=== PATIENT | female | born 1995 | race Two or more races ===

== ENCOUNTER 2023-04-24 20:58 | Emergency (ER) | payer MEDICARE, OTHER ==
[~2023-04-24] VITALS: Ht 170.2 cm; Wt 65.9 kg
[2023-04-24 21:09] VITALS: TEMP 98.3
[2023-04-24 21:56] VITALS: BP 119/71; PULSE 90; RESP 16
[2023-04-24 22:46] LABS: APPEARANCE,URINE CLEAR (CLEAR); BILIRUBIN,URINE NEGATIVE (NEGATIVE); COLOR,URINE LIGHT YELLOW (YELLOW); GLUCOSE, URINE (UA) NEGATIVE (NEGATIVE); KETONES,URINE NEGATIVE (NEGATIVE); LEUKOCYTE ESTERASE ,URINE NEGATIVE (NEGATIVE); NITRATE,URINE NEGATIVE (NEGATIVE); OCCULT BLOOD,URINE NEGATIVE (NEGATIVE); PROTEIN,URINE NEGATIVE (NEGATIVE); SPECIFIC GRAVITIY, URINE 1.014 (1.003-1.030); UROBILINOGEN,URINE <=1.0 mg/dL (<=1.0)
[2023-04-24 22:52] LABS: HCG,QUAL URINE NEGATIVE (NEGATIVE)
[2023-04-24] MEDS ORDERED: IBUP-1492 PO (23:18)
[2023-04-24] MEDS ORDERED: AZIT250T9 PO (23:18)
[2023-04-24] MEDS ORDERED: IBUPROFEN 600 MG TABLET PO ONE (23:30)
== END 2023-04-25 00:16 | disposition home or self-care (01) ==
LOC: EMS 21:01
DX: H66.93 Otitis media, unspecified, bilateral (principal); J02.9 Acute pharyngitis, unspecified; F17.210 Nicotine dependence, cigarettes, uncomplicated; F12.90 Cannabis use, unspecified, uncomplicated; F15.90 Other stimulant use, unspecified, uncomplicated; Z88.0 Allergy status to penicillin
CPT/HCPCS: 81003; 84703; 87430; 87491; 87591; 99283